=== PATIENT | male | born 1985 | race Caucasian/White ===

== ENCOUNTER 2025-05-22 19:24 | Emergency (ER) | payer MEDICAID ==
[~2025-05-22] VITALS: Ht 172.7 cm; Wt 91.0 kg
[2025-05-22 19:36] VITALS: O2SAT 96
[2025-05-22 20:26] LABS: BASOPHILS % 0.7 % (0.0-2.0); EOSINOPHILS % 2.8 % (0.0-5.0); HEMATOCRIT. 32.9 % (42.0-52.0); HEMOGLOBIN. 10.9 g/dL (14.0-18.0); LYMPHOCYTES % 13.1 % (20.0-50.0); MEAN PLATELET VOLUME 7.7 fl (7.4-10.4); MONOCYTES % 8.6 % (2.0-8.0); NEUTROPHILS % 74.8 % (40.0-76.0); PLATELET 493 x1000/uL (130-400); RED BLOOD CELL COUNT 3.90 mill/uL (4.7-6.1); RED CELL DISTRIBUTION WIDTH 14.2 % (11.6-14.6)
[2025-05-22 20:44] LABS: CREATININE 0.7 mg/dL (0.6-1.3); UREA NITROGEN BLOOD 13 mg/dL (9-23)
[2025-05-22] MEDS: MORPHINE SULFATE 4 MG/ML INJ (FOR IV/IM USE) IV ONE (21:13)
[2025-05-22 22:50] VITALS: BP 120/68; PULSE 81; RESP 18; TEMP 36.8; O2SAT 96
[2025-05-22 23:06] LABS: ERYTHROCYTE SEDIMENTATION RATE 101 mm/hr (0-15)
== END 2025-05-22 23:03 | disposition short-term general hospital (02) ==
LOC: ER 19:24 → CMPBEDREQ 05-23 07:17
DX: M79.602 Pain in left arm (principal); R51.9 Headache, unspecified; G82.20 Paraplegia, unspecified
CPT/HCPCS: 80048; 85025; 85651; 36415; 70450; 96374; 99285; J2270; Z7610 ×4; A4606